=== PATIENT | male | born 1950 | race Caucasian/White ===

== ENCOUNTER 2019-09-15 09:26 | Outpatient (CLI) | payer MEDICARE, SELFPAY ==
--- NOTE | 2019-09-16 11:11 | WPDHOLTEREM ---
Holter/Event Monitor Holter/Event Monitor Date of procedure: 09/15/19 Procedure Type: 24 hour holter monitor Indications: Arrhythmia Conclusion: 1. 24 hour holter monitor on 09/15/19. 2. Underlying rhythm is sinus rhythm. HR range 41-113 bpm; average HR 62 bpm. 3. No premature supraventricular complex. No supraventricular tachycardia. 4. There are 1,462 premature ventricular complexes, 2 ventricular couplets, 593 ventricular bigeminy and 99 ventricular trigeminy. No ventricular tachycardia. 5. No sinoatrial or atrioventricular blocks. No significant pauses greater than 2 seconds. 6. No symptoms available for correlation.
== END 2019-09-15 09:27 | disposition home or self-care (01) ==
PROVIDERS: PCP Family Medicine; Visit Provider Family Medicine
DX: I49.9 Cardiac arrhythmia, unspecified (principal)
CPT/HCPCS: 93225; 93226

== ENCOUNTER → 2020-06-22 02:52 | Outpatient (CLI) | payer MEDICARE, SELFPAY ==
[2020-06-22 22:47] LABS: SARS-CoV-2 RNA PCR Negative
== END ==
PROVIDERS: PCP Family Medicine; Visit Provider Orthopaedic Surgery
DX: Z01.812 Encounter for preprocedural laboratory examination (principal); Z20.822 Contact with and (suspected) exposure to COVID-19
CPT/HCPCS: C9803; U0003; U0005

== ENCOUNTER 2020-06-23 10:20 | Outpatient (CLI) | payer MEDICARE, SELFPAY ==
--- NOTE | 2020-06-23 10:30 | ECG_ITS ---
Measurements Intervals [place] Rate: 55 P: 72 CO: 172 QRS: 23 QRSD: 85 T: 22 QT: 403 QTc: 386 Interpretive Statements SINUS BRADYCARDIA ATRICA COUPLET BORDERLINE ECG Electronically Signed On 06-23-2020 10:31:16 TRANSITION SPECIALIST by Sawyer Maradiaga D.O.
== END 2020-06-23 10:21 | disposition home or self-care (01) ==
PROVIDERS: PCP Family Medicine; Visit Provider Orthopaedic Surgery
DX: Z01.810 Encounter for preprocedural cardiovascular examination (principal); I10 Essential (primary) hypertension; R00.1 Bradycardia, unspecified
CPT/HCPCS: 93005

== ENCOUNTER 2020-06-24 00:44 | Day surgery (SDC) | payer MEDICARE, SELFPAY ==
[2020-06-22 13:49] VITALS: BMI 25.9
--- NOTE | 2020-06-23 13:34 | WPDANESEPPF ---
Anes - Initial Pre Proc Eval Procedure: Operation Date: 06/24/20 13:30 Proposed Procedures p Excision Of The Right Foot Third Metatarsal Neuroma - Alexandre Resendez MD Date/Time: 06/23/20 13:34 Surgeon: Alexandre Resendez MD Pre Op Diagnosis: Right Foot Neuroma Patient Data Age: 69 Gender: M Height: 1.83 m Weight: 87 kg Allergies Allergy/AdvReac Type Severity Reaction Status Date / Time No Known Allergies Allergy Verified 06/24/20 11:53 Home Medications Medication Instructions Recorded Confirmed Type aspirin [Aspirin Low-Strength] 81 mg PO DAILY 06/22/20 06/24/20 History atorvastatin 10 mg PO DAILY 06/22/20 06/24/20 History lisinopril 5 mg PO DAILY 06/22/20 06/24/20 History metoprolol succinate 12.5 mg PO DAILY 06/22/20 06/24/20 History Patient hx anesthesia problems: none Family hx anesthesia problems: none [facility] Past Medical History Medical History (Updated 06/23/20 @ 13:35 by Saurabh Begum MD) Hallux rigidus of right foot History of left heart catheterization 2 Hypercholesterolemia Hypertension Reyes's neuroma of right foot Seasonal allergies Social History Social History Smoking status: Former smoker Tobacco type: cigarettes Smoking end date: 10/15/79 Additional smoking assessment comments: SMOKED IN COLLEGE YEARS ONLY Alcohol intake: current Drinks per week: 3 Substance use: never Living arrangements: with family Additional living arrangements comments: Spiritual care concerns: No Anes - Eval Final PreProcedure Day of Procedure 06/23/20 13:34 Patient weight: overweight Heart: regular rate and rhythm Lungs: clear to auscultation and normal air movement Airway: Mallampati scale class II Neurological: alert and oriented Last oral intake: >/= 8 hours ASA classification: II Emergent: no Anesthetic plan: proceed Anesthesia type and monitoring: general GIVS and LMA Informed Consent: The patient's anesthetic plan and its attendant risks and benefits were discussed with the patient/family/POA. Questions were solicited and answers provided to the satisfaction of the patient/family/POA.
--- NOTE | 2020-06-24 07:20 | WPDHPUPDATE1 ---
History and Physical Update Update Date/Time: 06/24/20 07:20 History and Physical has been reviewed, including an updated exam of the patient. There are NO changes in the patient's condition. Covid test negative. Risks, benefits, and alternatives have been discussed and questions answered. Patient agrees to proceed with procedure.
[2020-06-24] MEDS: ACETAMINOPHEN 500 MG TABLET 1000 MG PO (11:56)
[2020-06-24] MEDS: LACTATED RINGERS 1,000 ML 30 ML IV CONT (12:26)
[2020-06-24 12:50] VITALS: BP 139/90; PULSE 50; RESP 18; TEMP 36.9; O2SAT 100
[2020-06-24] MEDS: KETOROLAC 15 MG/ML VIAL (*BKC) IV PUSH (12:52)
[2020-06-24] MEDS: ceFAZolin 2 GM/D5W 50 ML 2 GM/50 ML BAG IVPB (13:02)
[2020-06-24] MEDS: BUPIVACAINE HCL 0.5% PF 30 ML VIAL INFILTRATE (13:21)
[2020-06-24 13:45] VITALS: BP 128/54; PULSE 68; RESP 14; O2SAT 98
--- NOTE | 2020-06-24 13:53 | PM.PROC ---
Procedure Note - Detailed Date of procedure: 06/24/20 Pre-op diagnosis: Right Foot Neuroma Post-op diagnosis: same Procedure performed: Excision right 3rd intermetatarsal space neuroma Description of procedure: Indications: Patient is a 69-year-old gentleman with a right foot intermetatarsal space neuroma. He has had previous injections, accommodative shoes and inserts. Continues to have pain with weight-bearing. Presents for operative treatment. Diagnostic injection done previously confirms 3rd intermetatarsal space neuroma. What was done: Patient identified in the preoperative holding. Informed consent given. Operative extremity marked. Patient received intravenous antibiotics. Patient brought to the operating room where underwent general anesthetic by anesthesia team. Positioned supine on operating room table. Time-out performed confirming the patient, site of the surgery and the plan. Right foot prepped draped usual sterile surgical fashion using a ChloraPrep skin solution. Esmarch bandage exsanguinated the foot and wrapped at the ankle as a tourniquet. Longitudinal incision made in the 3rd intermetatarsal space with a 15 blade knife. Hemostasis controlled electrocautery. Intermetatarsal ligament incised in line with skin incision. Retractors placed. A very large neuroma noted at the end of the intermetatarsal space. This was freed up from the surrounding soft tissue. The medial and lateral branches were identified and transected sharply. The nerve was then followed proximally into the intermetatarsal space and was transected well up into the intrinsic muscle. Tourniquet released and bleeding points coagulated. Thorough irrigation performed. Subcutaneous tissue repaired with 2 Vicryl interrupted suture. Skin repaired with 4 nylon running suture. Sterile dressing applied. The patient was then woken from anesthesia, extubated and taken to the recovery room in stable condition. All sponge, needle, instrument counts were correct at the end of the case. Anesthesia: MAC and local Surgeon: Alexandre Resendez MD Ring Stamper: administrative assistant coordinator Estimated blood loss (mL): 5 Tourniquet time (min): 30 Drains: No Packing: No Pathology: yes (3rd intermetatarsal space neuroma right foot) Complications: None Condition: stable Disposition: PACU
[2020-06-24 14:15] VITALS: BP 157/97; PULSE 56; RESP 20
[2020-06-24 14:45] VITALS: BP 159/89; PULSE 50; RESP 20
== END 2020-06-24 14:50 | disposition home or self-care (01) ==
PROVIDERS: PCP Family Medicine; Visit Provider Orthopaedic Surgery
PROC: (CPT 28080; principal; 2020-06-24 13:30)
DX: G57.61 Lesion of plantar nerve, right lower limb (principal); I10 Essential (primary) hypertension; E78.00 Pure hypercholesterolemia, unspecified; Z79.82 Long term (current) use of aspirin; Z87.891 Personal history of nicotine dependence
CPT/HCPCS: 28080; 88304; A9270; J0690; J1885; J2704; J3010; J7120

== ENCOUNTER 2020-11-08 19:44 | Emergency (ER) | payer MEDICARE, SELFPAY ==
--- NOTE | ~2020-11-08 | XR_ITS ---
EXAMINATION: XR chest 1V portable INDICATION: Transient alteration of awareness, nausea and vomiting TECHNIQUE: Portable AP chest at 2052 hours COMPARISON: 09/17/2010 FINDINGS: The lungs are free of acute opacities. The cardiomediastinal silhouette is normal. There is no pleural effusion or pneumothorax. Calcified right hilar lymph nodes are consistent with old granu lomatous disease. IMPRESSION: 1. No acute cardiopulmonary abnormality. Reviewed, dictated and finalized at location A.
--- NOTE | ~2020-11-08 | CT_ITS ---
EXAMINATION: CT brain wo con INDICATION: Transient alteration of awareness COMPARISON: None TECHNIQUE: Standard unenhanced head CT. The dose-length product (DLP) was 605.33 mGy-cm. The mA was a djusted according to patient size. Iterative reconstruction technique was employed. FINDINGS: There is no acute intraparenchymal hemorrhage. No evidence of mass lesion. No evidence of a cute infarction. 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 There is mild periventricular and subcortical hypodensity probably related to small vessel ischemic disease. There is mild promine nce of the sulci and ventricles related to cerebral atrophy. Intracranial calcified cerebral atherosc lerosis is noted. There are no extra-axial collections. There is no mass effect or midline shift. The orbits and soft tissues are unremarkable. There is mild mucosal thickening of the paranasal sinuses. IMPRESSION: 1. No acute intracranial abnormality. 2. Age related findings. Reviewed, dictated and finalized at location A.
[2020-11-08 19:44] VITALS: BP 98/76; PULSE 76; RESP 18; TEMP 36.7; O2SAT 97
--- NOTE | 2020-11-08 20:00 | ECG_ITS ---
Measurements Intervals [place] Rate: 75 P: [place]: 0 QRS: 15 QRSD: 88 T: 29 QT: 386 QTc: 432 Interpretive Statements ATRIAL FIBRILLATION VOLTAGE CRITERIA FOR LVH ABNORMAL ECG Electronically Signed On 11-08-2020 22:19:45 CDT by Sawyer Maradiaga D.O.
[2020-11-08 20:12] LABS: Basophils Absolute Auto 0.06 K/mm3 (0.00-0.10); Basophils Percent Auto 0.6 % (0.0-1.0); Eosinophils Absolute Auto 0.28 K/mm3 (0.02-0.50); Eosinophils Percent Auto 2.9 % (1.0-6.0); Hematocrit 40.1 % (37.0-46.0); Hemoglobin 13.3 g/dL (12.4-15.3); Immature Granulocyte Absolute 0.03 K/mm3 (0.00-0.00); Immature Granulocyte Percent A 0.3 % (0.0-0.0); Lymphocytes Absolute Auto 4.33 K/mm3 (1.10-4.50); Lymphocytes Percent Auto 44.7 % (18.0-42.0); Mean Corpuscular HGB Conc 33.2 g/dL (32.0-36.0); Mean Corpuscular Hemoglobin 32.7 pg (27.0-31.0); Mean Corpuscular Volume 98.5 fL (78.0-102.0); Mean Platelet Volume 8.9 fl (8.7-11.0); Monocytes Percent Auto 8.3 % (2.0-11.0); Neutrophils Absolute Auto 4.2 K/mm3 (1.7-7.2); Neutrophils Percent Auto 43.2 % (50.0-70.0); Platelet Count Result 207 K/mm3 (150-420); Red Blood Count 4.07 M/mm3 (4.70-6.10); Red Cell Distribution Width 12.5 % (11.6-14.4); White Blood Count 9.7 K/mm3 (4.8-10.8)
[2020-11-08] MEDS: SODIUM CHLORIDE 0.9% IV 1,000 ML 999 ML IV CONT ×2 (20:16→22:00)
[2020-11-08 20:25] LABS: D Dimer 0.47 mg/L (0.19-0.50)
--- NOTE | 2020-11-08 20:27 | ED.SYNCOPE ---
HPI - Syncope General Chief Complaint: Syncope Stated Complaint: AMB Time Seen by Provider: 11/08/20 20:27 Source: patient and EMS Mode of arrival: EMS Limitations: no limitations History of Present Illness HPI narrative: 70-year-old man with a history of hypertension and dyslipidemia brought to the emergency department today after a syncopal episode. Patient has been drinking alcohol after playing golf today. bystanders caught him before he fell completely to the ground. Patient does not remember the incident nor does he recall any chest pain, rapid heart rate, lightheadedness, or difficulty breathing. MD complaint: collapsed Onset (ago): minute(s) (30) Description of event: tonic-clonic movements ( Reported by bystanders, not witnessed by EMS.) Prodromal symptoms: none Witnessed: Yes - by Bystander Context: standing up and alcohol use Injuries sustained associated with event: none Current symptoms: nausea Treatments prior to arrival: IV fluids Related Data Home Medications Medication Instructions Recorded Confirmed aspirin 81 mg PO DAILY 06/22/20 11/08/20 atorvastatin 10 mg PO DAILY 06/22/20 11/08/20 lisinopril 5 mg PO DAILY 06/22/20 11/08/20 metoprolol succinate 12.5 mg PO DAILY 06/22/20 11/08/20 Allergies Allergy/AdvReac Type Severity Reaction Status Date / Time No Known Allergies Allergy Verified 07/12/20 09:48 Review of Systems Review of Systems: All systems reviewed & are unremarkable except as noted in HPI and below Constitutional: Constitutional: Denies chills and Denies fever(s) Eyes: Eyes: Denies change in vision and Denies photophobia ENT: Denies nasal congestion and Denies sore throat Cardiovascular: Cardiovascular: Denies chest pain and Denies radiating jaw, neck or arm pain Respiratory: Respiratory: Denies cough, Denies dyspnea and Denies wheezing Gastrointestinal: Gastrointestinal: Denies abdominal pain, Denies diarrhea, Reports nausea and Reports vomiting Genitourinary: Genitourinary: Denies hematuria, Denies dysuria and Denies urinary frequency Musculoskeletal: Musculoskeletal: Denies back pain, Denies arthralgias and Denies joint swelling Integumentary/Breasts: Skin/Breast: Denies pruritus, Denies erythema and Denies rash Neurologic: Denies vertigo, Denies dizziness and Denies syncope Hematologic/Lymphatic: Hematologic/Lymphatic: Denies easy bleeding and Denies easy bruising Allergic/Immunologic: Allergic/Immunologic: Denies lip swelling and Denies throat swelling PMFSH Past Medical History Medical History Hallux rigidus of right foot History of left heart catheterization 2 Hypercholesterolemia Hypertension Reyes's neuroma of right foot Seasonal allergies Social History Social History Tobacco type: cigarettes Smoking end date: 10/15/79 Additional smoking assessment comments: SMOKED IN COLLEGE YEARS ONLY Alcohol intake: current Drinks per week: 3 Alcohol use details: Occasional Substance use: never Additional living arrangements comments: Spiritual care concerns: No Exam Const: General: healthy appearing, no acute distress and alert Limitations: no limitations and other limitations (intoxicated) Other: Vomitus on shirt HENMT: Head: normal to inspection Ears: external ears normal, TM's normal bilaterally and EAC's normal General nose exam: Normal nares present Face and sinus: normal facial exam Mouth: Yes moist mucous membranes Throat: posterior oropharynx normal Eyes: Conjunctivae: conjunctivae normal Pupils: Equal, round and reactive pupils present EOM: EOMs intact bilaterally Resp: Effort & Inspection: normal respiratory effort and not labored Auscultation: clear to auscultation bilaterally, no crackles, no rales and no rhonchi Cardio: Rate: regular rate Rhythm: abnormal rhythm irregularly irregular GI: GI P
[2020-11-08 20:30] LABS: Alanine Aminotransferase 27 U/L (16-63); Albumin Level 3.5 g/dL (3.4-5.0); Alkaline Phosphatase 83 U/L (46-116); Anion Gap 17 mmol/L (8-16); Aspartate Amino Transferase 33 U/L (15-37); Bilirubin,Total 0.4 mg/dL (0.00-1.00); Blood Urea Nitrogen 21 mg/dL (7-18); Calcium 7.9 mg/dL (8.5-10.1); Carbon Dioxide 22 mmol/L (21-32); Chloride 105 mmol/L (98-108); Estimated Glomerular Filt Rate > 60; Glucose 97 mg/dL (70-99); Magnesium 2.1 mg/dL (1.8-2.4); Osmolality Calculated 301 mOsm/kg (285-295); Potassium 3.6 mmol/L (3.5-5.1); Sodium 144 mmol/L (136-145); Total Protein 6.2 g/dL (6.4-8.2)
[2020-11-08 20:32] LABS: Troponin I 110.7 ng/L (0.00-60.4)
[2020-11-08 20:33] VITALS: PULSE 76
[2020-11-08 20:33] LABS: Lactic Acid Reflex 2.2 mmol/L (0.4-2.0)
[2020-11-08 20:34] LABS: Ethanol 134 mg/dL (0-6)
[2020-11-08] MEDS: ASPIRIN 81 MG CHEWABLE TABLET 324 MG PO (20:38)
[2020-11-08] MEDS: ONDANSETRON INJ 4 MG/2 ML VIAL IV PUSH (20:39)
--- NOTE | 2020-11-08 20:47 | PC.NURSE ---
2031 dr martinez notified of elevated troponin
--- NOTE | 2020-11-08 21:08 | PC.NURSE ---
in the room with pt. explained visitor policy. pt resting calmly and quietly at this time on right side.
[2020-11-08 21:27] VITALS: BP 95/70; PULSE 76; RESP 20; O2SAT 94
--- NOTE | 2020-11-08 21:27 | PC.NURSE ---
pt sleeping . at bedside
--- NOTE | 2020-11-08 21:59 | PC.NURSE ---
pt resting per cot, awake , eyes closed. denies nausea at this time. request for urine specimen x4. pt continues to deny need to urinate. erp dr maritnez notified.
[2020-11-08 23:09] LABS: Reflex Lactic Acid Yes or No Add Lactic
[2020-11-08 23:40] LABS: Lactic Acid 1.9 mmol/L (0.4-2.0)
[2020-11-08 23:41] VITALS: BP 105/72; PULSE 85; RESP 20; TEMP 36.7; O2SAT 98
== END 2020-11-08 23:43 | disposition home or self-care (01) ==
PROVIDERS: Emergency Provider Emergency Medicine; PCP Family Medicine
DX: R55 Syncope and collapse (principal); I48.91 Unspecified atrial fibrillation; F10.929 Alcohol use, unspecified with intoxication, unspecified; I10 Essential (primary) hypertension; E78.00 Pure hypercholesterolemia, unspecified; Z79.899 Other long term (current) drug therapy
CPT/HCPCS: 36415; 70450; 71045; 80053; 80307; 82948; 83605; 83735; 84484; 85025; 85380; 93005; 96361; 96374; 99284; A9270; J2405; J7030